=== PATIENT | male | born 2000 | race Hispanic/Latino ===

== ENCOUNTER 2023-07-20 11:12 | Observation (INO) | payer SELFPAY ==
[2023-07-20] MEDS ORDERED: HYDROMORPHONE HCL 1 MG/ML INJ ONE (11:26)
[2023-07-20] MEDS ORDERED: ONDANSETRON 4 MG/2 ML VIAL ONE ×2 (11:27→12:40)
[2023-07-20] MEDS ORDERED: LIDOCAINE HCL/EPINEPHRINE 20 ML MDV ONE (11:28)
[2023-07-20] MEDS ORDERED: LIDOCAINE 1.5% W/EPI AMP 5 ML ONE (11:29)
[2023-07-20 11:31] LABS: Absolute Lymphocytes (CBC) 1.3 K/uL (0.7-4.9); Hematocrit 43.4 % (39.6-49.0); Lymphocytes % 8.7 % (15.3-44.8); MCV 90.6 fL (80-100); Platelets 263 thou/uL (152-406); RBC Red Blood Cell Count 4.79 M/uL (4.33-5.43)
[2023-07-20 11:34] LABS: Protime INR 1.27
[2023-07-20 11:48] LABS: Potassium 3.6 mEq/L (3.5-5.1); Troponin High Sensitivity 4.1 pg/mL (<58.9)
--- NOTE | 2023-07-20 11:50 | ER ---
Nurse's Notes [facility] Name: Hollis Light Age: 22 yrs Sex: Male : 2000 Arrival Date: 07/20/2023 Time: 11:12 Bed 3 Private MD: Diagnosis: Complex laceration to the right lower leg, marine envenomation, acute blood loss Presentation: 07/20 11:10 [facility] [employer] [facility] pt was [place] when he caught an [place] kc6 and the fishes bill cut his right lower leg. tourniquet in place upon arrival in ED. Dr. Torres at bedside. Coronavirus screen: At this time, the client does not indicate any symptoms associated with coronavirus-19. Ebola Screen: No symptoms or risks identified at this time. 11:10 Method Of Arrival: Other [facility] 11:10 Complicating Factors: laceration. Initial Sepsis Screen: Does the patient meet any 2 kc6 criteria? HR > 90 bpm. No. Patient's initial sepsis screen is negative. Does the patient have a suspected source of infection? No. Patient's initial sepsis screen is negative. Risk Assessment: Do you want to hurt yourself or someone else? Patient reports no desire to harm self or others. Onset of symptoms was July 20, 2023. 11:10 Acuity: JOSHUA 2 kc6 Triage Assessment: 11:10 Pain: Complains of pain in right leg Pain does not radiate. Pain currently is 10 out of kc6 10 on a pain scale. Is continuous. EENT: No signs and/or symptoms were reported regarding the EENT system. Neuro: Level of Consciousness is awake, alert, obeys commands, Oriented to person, place, time, situation, Appropriate for age. Cardiovascular: Denies chest pain, Heart tones S1 S2 present Capillary refill < 3 seconds Rhythm is sinus tachycardia. Respiratory: Airway is patent Trachea midline Respiratory effort is even, unlabored, Respiratory pattern is regular, symmetrical, Denies shortness of breath. GI: No signs and/or symptoms were reported involving the gastrointestinal system. : No signs and/or symptoms were reported regarding the genitourinary system. Derm: Skin is healthy with good turgor, Skin is pink, warm \T\ dry. Musculoskeletal: No signs and/or symptoms reported regarding the musculoskeletal system. Circulation, motion, and sensation intact. Capillary refill < 3 seconds, Range of motion: intact in all extremities. Injury Description: Laceration sustained to right leg is clean, > 20 cm long, with pulsatile bleeding, was sustained 30-60 minutes ago. is bleeding profusely a dressing was applied. Historical: - Allergies: 12:36 Vancomycin; kc6 - PMHx: 11:30 Hypertensive disorder; kc6 - PSHx: 11:30 None; kc6 - Immunization history:: Client reports having NOT received the Covid vaccine. Flu vaccine is not up to date. - Social history:: Smoking status: Patient denies any tobacco usage or history of. Patient uses marijuana. Screenin:10 [facility] ED Fall Risk Assessment (Adult) History of falling in the last 3 months, kc6 including since admission No falls in past 3 months (0 pts) Confusion or Disorientation No (0 pts) Intoxicated or Sedated No (0 pts) Impaired Gait No (0 pts) Mobility Assist Device Used No (0 pt) Altered Elimination No (0 pt) Score/Fall Risk Level 0 - 2 = Low Risk. Abuse screen: Denies threats or abuse. Denies injuries from another. Nutritional screening: No deficits noted. Tuberculosis screening: No symptoms or risk factors identified. Assessment: 11:33 Reassessment: pt to CT via stretcher with monitoring. kc6 11:55 Reassessment: pt returned from CT via stretcher. report called to RADHA Reyes in OR. kc6 12:04 Reassessment: Patient appears in no apparent distress at this time. Patient and/or hb family updated on plan of care and expected duration. Pain level reassessed. Patient is alert, oriented x 3, equal unlabored respirations, skin warm/dry/pink. Vital Signs: 11:10 BP 163 / 116; Pulse 131; Resp 20 S; Temp 98.7(O); Pulse Ox 100% on R/A; Weight 77.11 kg kc6 (R); Height 5 ft. 8 in. (R); 11:10 BP 150 / 109; Pulse 122; Resp 18 S; Pulse Ox 100% on R/A; kc6 11:15 BP 132 / 89; Pulse 101; Resp 13 S; Pulse Ox 98% on R/A; kc6 11:45 BP 153 / 113; Pulse 96; Resp 16 S; Pulse Ox 98% on R/A; kc6 12:04 BP 157 / 101; Pulse 96; Resp 18; Pulse Ox 99% on R/A; hb 12:15 BP 161 / 92; Pulse 100; Resp 17; Pulse Ox 100% on R/A; kc6 11:10 Body Mass Index 25.85 (77.11 kg, 172.72 cm) kc6 ED Course: 11:10 Arm band placed on. kc6 11:10 Patient has correct armband on for positive identification. Bed in low position. Call kc6 light in reach. Side rails up X2. Client placed on continuous cardiac and pulse oximetry monitoring. NIBP monitoring applied. hospital monitor on. 11:10 Inserted saline lock: 20 gauge in right antecubital area, using aseptic technique. kc6 ,using aseptic technique. by Edgar Cannon RN Blood collected. 11:10 Wound care: to laceration located on right leg was wet to dry compression dressing kc6 applied, wrapped in ISA bandage. tourniquet removed at this time. 11:14 Patient arrived in ED. eb 11:14 Cheryle Torres MD is Attending Physician. eb 11:30 Triage completed. kc6 11:40 Lower Ext Angio In Process Unspecified. EDMS 11:46 Shannon Hernandez, RADHA is Primary Nurse. kc6 11:49 XRAY Chest (1 view) In Process Unspecified. EDMS 11:49 Zohaib Liao MD is Hospitalizing Provider. sp3 12:08 Shannon Hernandez, RADHA is Primary Nurse. kc6 12:36 No provider procedures requiring assistance completed. Patient admitted, IV remains in kc6 place. Administered Medications: 11:21 Drug: HYDROmorphone IVP 1 mg Route: IVP; Site: right antecubital; hb 12:05 Follow up: Response: No adverse reaction hb 11:21 Drug: Ondansetron IVP 4 mg Route: IVP; Site: right antecubital; hb 12:05 Follow up: Response: No adverse reaction hb 12:04 Drug: ceFAZolin IVPB 1 grams Route: IVPB; Site: right antecubital; kc6 12:37 Follow up: Response: No adverse reaction; IV Status: Completed infusion; IV Intake: kc6 100ml 12:34 Drug: levofloxacin IVPB 500 mg Volume: 100 ml; Route: IVPB; Infused Over: 60 mins; 6 Site: right antecubital; Medication: 12:37 VIS not applicable for this client. kc6 Intake: 12:37 IV: 100ml; Total: 100ml. [facility] Outcome: 11:50 Decision to Hospitalize by Provider. sp3 12:36 Admitted to OR accompanied by nurse, via stretcher, with chart, Report called to deanna Reyes RN 12:36 Condition: stable 12:36 Instructed on the need for admit. 12:37 Patient left the ED. [facility] Signatures: Dispatcher [employer] EDMS Judy Minaya RN RN Alexia Barkley Setul, MD MD sp3 Shannon Hernandez RN RN [facility] Corrections: (The following items were deleted from the chart) 12:10 11:10 Chief complaint: . [email or web address] states pt was [place] when he caught kc6 an [place] and the fishes bill cut his right lower leg. tourniquet in place upon arrival in ED [facility] 12:36 11:30 Allergies: No Known Allergies; [place] [id number]
--- NOTE | 2023-07-20 11:50 | EDPHYS ---
Physician Documentation [facility] Name: Hollis Light Age: 22 yrs Sex: Male : 2000 Arrival Date: 07/20/2023 Time: 11:12 Bed 3 Private MD: ED Physician Cheryle Torres HPI: 07/20 11:38 This 22 yrs old Male presents to ER via Other with complaints of Laceration To Leg. sp3 11:38 22-year-old male with history of hypertension presents to the ED via [employer] sp3 helicopter after being deep sea fishing, catching it while who fish, and during that process the head of the fish lacerated the medial aspect of his lower leg with a large 9 inch laceration, multilayer down to the muscle, with arterial bleeding. [employer] applied tourniquets to the wound and were not able to do further. Arrival vital signs were blood pressure 160/110 with heart rate of 131. Patient's last meal was approximately 4 hours ago which consisted of a protein bar.. Historical: - Allergies: 12:36 Vancomycin; kc6 - PMHx: 11:30 Hypertensive disorder; kc6 - PSHx: 11:30 None; kc6 - Immunization history:: Client reports having NOT received the Covid vaccine. Flu vaccine is not up to date. - Social history:: Smoking status: Patient denies any tobacco usage or history of. Patient uses marijuana. ROS: 11:39 Constitutional: Negative for fever, chills, and weight loss, Eyes: Negative for injury, sp3 pain, redness, and discharge, ENT: Negative for injury, pain, and discharge, Neck: Negative for injury, pain, and swelling, Cardiovascular: Negative for chest pain, palpitations, and edema, Respiratory: Negative for shortness of breath, cough, wheezing, and pleuritic chest pain, Abdomen/GI: Negative for abdominal pain, nausea, vomiting, diarrhea, and constipation, Back: Negative for injury and pain, Skin: Negative for injury, rash, and discoloration, Neuro: Negative for headache, weakness, numbness, tingling, and seizure. 11:39 All other systems are negative. Exam: 11:40 Constitutional: This is a well developed, well nourished patient who is awake, alert, sp3 and in no acute distress. Head/Face: Normocephalic, atraumatic. Eyes: Pupils equal round and reactive to light, extra-ocular motions intact. Lids and lashes normal. Conjunctiva and sclera are non-icteric and not injected. Cornea within normal limits. Periorbital areas with no swelling, redness, or edema. ENT: Nares patent. No nasal discharge, no septal abnormalities noted. External auditory canals are clear. Oropharynx with no redness, swelling, or masses, exudates, or evidence of obstruction, uvula midline. Mucous membranes moist. Neck: Trachea midline, no thyromegaly or masses palpated, and no cervical lymphadenopathy. Supple, full range of motion without nuchal rigidity, or vertebral point tenderness. No Meningismus. Chest/axilla: Normal chest wall appearance and motion. Nontender with no deformity. No lesions are appreciated. Cardiovascular: Regular rate and rhythm with a normal S1 and S2. No gallops, murmurs, or rubs. Normal PMI, no JVD. No pulse deficits. Respiratory: Lungs have equal breath sounds bilaterally, clear to auscultation and percussion. No rales, rhonchi or wheezes noted. No increased work of breathing, no retractions or nasal flaring. Back: No spinal tenderness. No costovertebral tenderness. Full range of motion. Neuro: Awake and alert, GCS 15, oriented to person, place, time, and situation. Cranial nerves II-XII grossly intact. Motor strength 5/5 in all extremities. Sensory grossly intact. Cerebellar exam normal. Normal gait. Psych: Awake, alert, with orientation to person, place and time. Behavior, mood, and affect are within normal limits. 11:40 Musculoskeletal/extremity: Right lower extremity with 9 inch deep laceration multilayer with 2 arterial bleeds in small vessels. Distal pulses present after removal of 3 tourniquets.. Vital Signs: 11:10 BP 163 / 116; Pulse 131; Resp 20 S; Temp 98.7(O); Pulse Ox 100% on R/A; Weight 77.11 kg kc6 (R); Height 5 ft. 8 in. (R); 11:10 BP 150 / 109; Pulse 122; Resp 18 S; Pulse Ox 100% on R/A; kc6 11:15 BP 132 / 89; Pulse 101; Resp 13 S; Pulse Ox 98% on R/A; kc6 11:45 BP 153 / 113; Pulse 96; Resp 16 S; Pulse Ox 98% on R/A; kc6 12:04 BP 157 / 101; Pulse 96; Resp 18; Pulse Ox 99% on R/A; hb 12:15 BP 161 / 92; Pulse 100; Resp 17; Pulse Ox 100% on R/A; kc6 11:10 Body Mass Index 25.85 (77.11 kg, 172.72 cm) kc6 MDM: 11:25 Patient medically screened. sp3 11:40 Data reviewed: vital signs, nurses notes, lab test result(s), radiologic studies. ED sp3 course: Procedure note: In a nonsterile fashion, 3-0 Prolene was used to apply 3 interrupted sutures after 1% lidocaine 10 mL were injected in the estimated bleeding site area. After suture application, bleeding has stopped. Patient tolerated procedure fine.. ED course: We will obtain CT scan of the lower extremity with angio contrast to assess for any other arterial injury. Ancef will be given IV. I have discussed case with Dr. Liao will take patient to the OR for proper irrigation and wound repair.. 07/20 11:18 Order name: Basic Metabolic Panel hb 07/20 11:18 Order name: CBC with Diff hb 07/20 11:18 Order name: Troponin HS hb 07/20 11:18 Order name: Type And Screen hb 07/20 11:25 Order name: PT-INR sp3 07/20 11:18 Order name: XRAY Chest (1 view) hb 07/20 11:21 Order name: Lower Ext Angio EDMS 07/20 11:18 Order name: EKG; Complete Time: 11:19 hb 07/20 11:18 Order name: Cardiac monitoring; Complete Time: 11:33 hb 07/20 11:18 Order name: IV Saline Lock; Complete Time: 11:33 hb 07/20 11:18 Order name: Labs collected and sent; Complete Time: 11:33 hb 07/20 11:18 Order name: O2 Per Protocol; Complete Time: 11:33 hb 07/20 11:18 Order name: O2 Sat Monitoring; Complete Time: 11:33 hb Administered Medications: 11:21 Drug: HYDROmorphone IVP 1 mg Route: IVP; Site: right antecubital; hb 12:05 Follow up: Response: No adverse reaction hb 11:21 Drug: Ondansetron IVP 4 mg Route: IVP; Site: right antecubital; hb 12:05 Follow up: Response: No adverse reaction hb 12:04 Drug: ceFAZolin IVPB 1 grams Route: IVPB; Site: right antecubital; kc6 12:37 Follow up: Response: No adverse reaction; IV Status: Completed infusion; IV Intake: kc6 100ml 12:34 Drug: levofloxacin IVPB 500 mg Volume: 100 ml; Route: IVPB; Infused Over: 60 mins; kc6 Site: right antecubital; Disposition Summary: 07/20/23 11:50 Hospitalization Ordered Hospitalization Status: Observation sp3 Provider: Zohaib Liao sp3 Location: Telemetry/MedSurg (observation) sp3 Condition: Stable sp3 Problem: new sp3 Symptoms: are unchanged sp3 Bed/Room Type: Standard sp3 Room Assignment: sp3 Diagnosis - Complex laceration to the right lower leg, marine envenomation, acute blood loss sp3 Forms: - Medication Reconciliation Form sp3 - SBAR form sp3 - Leadership Thank You Letter sp3 Signatures: Dispatcher [employer] EDJudy Bhat RN RN Cheryle Torres MD MD sp3 Shannon Hernandez RN RN kc6 Corrections: (The following items were deleted from the chart) 11:59 11:18 EKG - Nurse/Tech ordered. hb kc6 12:36 11:30 Allergies: No Known Allergies; kc6 kc6
--- NOTE | 2023-07-20 11:58 | RAD REPORT ---
EXAM DESCRIPTION: Alena Ext Angio - 07/20/2023 11:39 am CLINICAL HISTORY: laceration on lower leg COMPARISON: No comparisons TECHNIQUE: CTA of the right lower extremity was performed. All CT scans are performed using dose optimization technique as appropriate and may include automated exposure control or mA/KV adjustment according to patient size. FINDINGS: The major arterial structures in the right lower extremity are all widely patent. Large la ceration at the medial distal right lower extremity at the level of the mid tibia. No radiopaque fore ign body. No large hematoma. The wound extends down to the mid also compartment but which appears tamie ssly intact. No acute fracture. IMPRESSION: Right lower extremity arterial structures are widely patent. No evidence of an arterial injury. Soft tissue wound at the level of the mid tibia appears to be confined to the subcutaneous ti ssues. No fracture.
[2023-07-20] MEDS ORDERED: CEFAZOLIN SODIUM 1 GM/VIAL ONE (12:08)
[2023-07-20] MEDS ORDERED: Levofloxacin500mg IV 500 MG/100 ML BAG IV ONE (12:08)
[2023-07-20] MEDS ORDERED: NA CHLORIDE 0.9% 250 ML ONE (12:08)
--- NOTE | 2023-07-20 12:11 | RAD REPORT ---
EXAM DESCRIPTION: RAD - Chest Single View - 07/20/2023 11:47 am CLINICAL HISTORY: TRAUMA COMPARISON: No comparisons FINDINGS: Lines: None. Lungs: No evidence of edema or pneumonia. Pleural: No significant pleural effusions or pneumothorax. Cardiac: The heart size is within normal limits. Mediastinum: Within normal limits. Bones: No acute fractures. Other: None IMPRESSION: No acute cardiopulmonary disease.
[2023-07-20] MEDS ORDERED: FENTANYL CITR 100 MCG/2 ML ONE (12:40)
[2023-07-20] MEDS ORDERED: MIDAZOLAM HCL 2 MG/2 ML INJ ONE (12:40)
[2023-07-20] MEDS ORDERED: propofoL 200 MG/20 ML VIAL IV ONE (12:40)
[2023-07-20] MEDS ORDERED: LIDOCAINE 2% MPF 5 ML VIAL ONE (12:41)
[2023-07-20] MEDS ORDERED: Ringers Lactate 1,000 ML IV ONE (12:53)
--- NOTE | 2023-07-20 13:08 | P.HP ---
Date of Service: 07/20/23 PC: This 22-year-old male was brought to the emergency room after sustaining a laceration to his right lower leg for diagnosis and treatment. HPC: Patient been out fishing today got hit by the gold plate on a [place] fish while landing it. Sustained a significant laceration to his right leg. After [employer] rescue, was brought to our emergency room for evaluation and treatment. PSHx: NAD PMHx: Negative Social Hx: No known allergies Sys R: Otherwise healthy young male O/E: Awake alert vital signs are stable HEENT: Negative Chest: Air entry equal bilaterally Abd: Soft [place]: Dressing in place on the lower leg, has peripheral pulses in the right leg Data: CT scan angio negative Impression: Significant laceration to the right lower leg Plan: I will taken back to the operating room for exploration, and hemostasis of this laceration on his right leg. The risks of this procedure have been discussed. The possibility of bleeding, infection, scar formation need for further surgeries and procedures was discussed. He understands and wants us to proceed.
--- NOTE | 2023-07-20 14:06 | P.OP ---
Preoperative diagnosis: Laceration to the right leg Postoperative diagnosis: The same Primary procedure: Exploration, sharp debridement, and closure of laceration right leg Secondary procedure: Pulse lavage Anesthesia: General Estimated blood loss: Less than 10 cc Specimen: None sent Operative Technique: The patient brought the operating room and placed supine on the table. After t he induction of adequate general anesthesia, the area of the right leg was prepped from toes to thigh, a tourniquet was in place, and he was draped in the usual aseptic manner. Attention was turned towards his 6 inch laceration on the medial aspect of this patient's right leg. We could see that this was a tangential injury. The laceration went all the way down to but the fascia over the muscle. The wound was carefully inspected. There were branches of the saphenous vein that had been emergently tied in the ER. The sutures were removed and replaced with a small stick ligatures. Electrocautery was also used on some of the smaller vessels. Adequate hemostasis having been ensured, the leg was now irrigated with a pulse lavage for approximately 600 cc of normal saline. The wound was ag ain inspected. Adequate hemostasis having been ensured the underlying subcutaneous tissue was loosely approximated together using interrupted stitches of chromic. The skin was then reapproximated with valerie. At the end of the procedure the patient was in a stable condition when sent to the recovery room. Needle sponge instrument count were correct. A sterile dressing had been applied. Complications: None Transferred to: Recovery Room Condition: Good
[2023-07-20] MEDS ORDERED: HYDROCODONE/APAP 7.5/325 MG TAB ONE (15:00)
[2023-07-20 15:32] VITALS: BP 138/90; TEMP 97.5; O2SAT 100
== END 2023-07-20 15:30 | disposition home or self-care (01) ==
LOC: ER 11:12 → ERHOLD 11:50
PROVIDERS: ADMIT Surgery; ATTEND Surgery
PROC: 06Q Lower Veins, Repair (ICD-10-PCS; principal; 2023-07-20 11:00)
DX: S81.811A Laceration without foreign body, right lower leg, initial encounter (principal); I10 Essential (primary) hypertension; W56.52XA Struck by other fish, initial encounter; Y93.89 Activity, other specified; Y92.89 Other specified places as the place of occurrence of the external cause; Y99.8 Other external cause status; Z88.3 Allergy status to other anti-infective agents
CPT/HCPCS: 36415; 71045; 73706; 80048; 84484; 85025; 85610; 86850; 86900; 86901; 96365; 96375; 99285; G0378; J0690; J1170; J2001; J2250; J2405; J2704; J3010; J7050; J7120; Q9967